=== PATIENT | male | born 1950 | race African-American/Black ===

== ENCOUNTER 2024-03-03 07:37 | Inpatient (IN) | payer OTHER ==
[2024-03-03] MEDS ORDERED: Ondansetron ODT 4 MG TAB PO PRN (10:06)
[2024-03-03] MEDS ORDERED: Ondansetron PF 4 MG/2 ML Vial IVP PRN (10:06)
[2024-03-03] MEDS ORDERED: Senokot S 8.6-50 MG TAB PO PRN (10:06)
[2024-03-03 10:10] VITALS: BMI 32.1
[2024-03-03] MEDS: Metoprolol Tartrate 25 MG TAB PO SCH ×2 (10:44→20:29)
[2024-03-03] MEDS: Enoxaparin 100 MG (1 mL) SYRINGE SC SCH ×2 (10:44→20:29)
[2024-03-03] MEDS ORDERED: Metoprolol Tartrate 5 MG (5 mL) VIAL IVP PRN (10:45)
[2024-03-03 11:18] LABS: Hemoglobin A1c 5.4 % (4.0-6.0)
[2024-03-03 11:19] LABS: Anion Gap 13 mmol/L (10-20); BUN (Urea Nitrogen) 11 mg/dL (8.4-25.7); Calc. Creatinine Clearance 124 mL/min (70-130); Carbon Dioxide 23 mmol/L (23-31); Chloride 105 mmol/L (98-107); Estimated GFR 97; Glucose 119 mg/dL (83-110); Potassium 4.2 mmol/L (3.5-5.1); Sodium 137 mmol/L (136-145)
[2024-03-03 11:30] LABS: Troponin I Less than 0.010 ng/mL (< 0.028)
[2024-03-03 11:41] LABS: Free T4 (Free Thyroxine) 3.29 ng/dL (0.70-1.48); Thyroid Stimulating Hormone Less than 0.0083 uIU/mL (0.35-4.94)
[2024-03-03] MEDS: Lisinopril 10 MG TAB PO SCH (11:49)
[2024-03-03] MEDS: Methimazole 5 MG TAB PO SCH (13:28)
[2024-03-03] MEDS: FLU (Fluad Triv) TS24-25 (65UP)/MF59C/PF 45 MCG/0.5 ML Syringe IM ONE (15:19)
[2024-03-03] MEDS: Acetaminophen 325 MG TAB PO PRN (20:29)
[2024-03-04 04:45] LABS: #Basophils Less than 0.03 10x3/uL (0.0-0.2); #Eosinophils Less than 0.03 10x3/uL (0.0-0.7); %Basophils 0.1 % (0.0-1.0); %Eosinophils 0.1 % (0.0-10.0); %Lymphocytes 21.3 % (21.0-51.0); %Monocytes 12.2 % (0.0-10.0); %Neutrophils 65.9 % (42.0-75.0); Hematocrit 32.4 % (42.0-52.0); Hemoglobin 10.7 g/dL (14.0-18.0); Mean Corpuscular Volume 84.8 fL (78.0-98.0); Mean Platelet Volume 10.7 fL (7.4-10.4); Platelet Count 150 10x3/uL (130-400); Red Blood Cell (RBC) Count 3.82 mill/uL (4.70-6.10)
[2024-03-04 05:10] LABS: Anion Gap 14 mmol/L (10-20); BUN (Urea Nitrogen) 13 mg/dL (8.4-25.7); Calc. Creatinine Clearance 142 mL/min (70-130); Calcium 9.1 mg/dL (7.8-10.44); Carbon Dioxide 20 mmol/L (23-31); Cardiac Risk 2.5 (Less than 4.5); Chloride 105 mmol/L (98-107); Cholesterol 112 mg/dl (< 200 Desired); Estimated GFR 101; Glucose 99 mg/dL (83-110); HDL Cholesterol 44 mg/dL (>60 Neg Risk); LDL Cholesterol, Calculated 58 mg/dL; Potassium 3.5 mmol/L (3.5-5.1); Sodium 135 mmol/L (136-145); Triglycerides 52 mg/dL (Less than 150)
[2024-03-04] MEDS: Aspirin 81 mg Enteric Coated Tablet PO SCH (09:03)
[2024-03-04] MEDS: Lisinopril 10 MG TAB PO SCH (09:03)
[2024-03-04] MEDS: Methimazole 5 MG TAB PO SCH ×2 (09:05→15:11)
[2024-03-04] MEDS ORDERED: Regadenoson 0.4 MG/5 ML SYRINGE ONE (10:26)
[2024-03-04] MEDS ORDERED: Electrolyte Replacement Protocol 1 EACH FS SCH (14:00)
[2024-03-04] MEDS ORDERED: Electrolyte Replacement Protocol FS PRN (14:15)
[2024-03-04] MEDS: Furosemide 20 MG TAB PO SCH (15:39)
[2024-03-04] MEDS: Metoprolol Tartrate 50 MG TAB PO SCH (20:22)
[2024-03-04] MEDS: Apixaban 5 MG TAB PO SCH (20:22)
[2024-03-05 04:40] LABS: #Basophils Less than 0.03 10x3/uL (0.0-0.2); #Eosinophils Less than 0.03 10x3/uL (0.0-0.7); %Basophils 0.1 % (0.0-1.0); %Lymphocytes 23.8 % (21.0-51.0); %Monocytes 12.5 % (0.0-10.0); %Neutrophils 63.5 % (42.0-75.0); Hematocrit 30.1 % (42.0-52.0); Mean Corpuscular HGB CONC 33.2 g/dL (32.0-36.0); Mean Corpuscular Hemoglobin 28.1 pg (27.0-31.0); Mean Corpuscular Volume 84.6 fL (78.0-98.0); Mean Platelet Volume 10.4 fL (7.4-10.4); Platelet Count 148 10x3/uL (130-400); RBC Distribution Width 12.7 % (11.5-14.5); Red Blood Cell (RBC) Count 3.56 mill/uL (4.70-6.10)
[2024-03-05 05:19] LABS: Anion Gap 9 mmol/L (10-20); BUN (Urea Nitrogen) 7 mg/dL (8.4-25.7); Calc. Creatinine Clearance 153 mL/min (70-130); Calcium 8.8 mg/dL (7.8-10.44); Carbon Dioxide 24 mmol/L (23-31); Chloride 106 mmol/L (98-107); Estimated GFR 103; Glucose 102 mg/dL (83-110); Magnesium 1.8 mg/dL (1.6-2.6); Potassium 3.3 mmol/L (3.5-5.1); Sodium 136 mmol/L (136-145)
[2024-03-05] MEDS: Magnesium 2 GM/50 ML(in water) 2 GM in Premix 1 BAG IVPB SCH (08:41)
[2024-03-05] MEDS: Potassium Chloride 20 MEQ TAB PO SCH (08:41)
[2024-03-05] MEDS: Furosemide 20 MG TAB PO SCH (08:41)
[2024-03-05 10:15] VITALS: BMI 32.1
[2024-03-05] MEDS ORDERED: Iopamidol-370 76% 500 ML MDV (1 ML CHARGE) ONE (12:00)
[2024-03-05 13:51] VITALS: TEMP 98
[2024-03-05 16:02] VITALS: BP 134/84
== END 2024-03-05 16:45 | disposition home or self-care (01) | DRG 308 ==
LOC: OBS 09:40 → OBSVTOIN 03-05 09:03
PROVIDERS: ADMIT Student in an Organized Health Care Education/Training Program; ATTEND Internal Medicine Critical Care Medicine
DX: I48.91 Unspecified atrial fibrillation (principal); I26.99 Other pulmonary embolism without acute cor pulmonale; I50.21 Acute systolic (congestive) heart failure; I24.89 Other forms of acute ischemic heart disease; E03.9 Hypothyroidism, unspecified; E66.811 Obesity, class 1; F10.90 Alcohol use, unspecified, uncomplicated; R73.9 Hyperglycemia, unspecified; F17.220 Nicotine dependence, chewing tobacco, uncomplicated; I11.0 Hypertensive heart disease with heart failure; Z86.711 Personal history of pulmonary embolism; Z79.01 Long term (current) use of anticoagulants; Z68.32 Body mass index [BMI] 32.0-32.9, adult; Z91.199 Patient's noncompliance with other medical treatment and regimen due to unspecified reason
CPT/HCPCS: 36415; 71275; 78452; 80048; 80061; 83036; 83735; 84238; 84439; 84443; 84480; 85025; 93005; 93010; 93017; 93306; 96372; 96374; A9502; G0378; J1650; J2785; J3475; Q9967